=== PATIENT | female | born 1975 | race Caucasian/White ===

== ENCOUNTER 2017-02-14 16:46 | Emergency (ER) | payer BC ==
[2017-02-14 17:11] VITALS: BP 134/107
[2017-02-14] MEDS ORDERED: LORazepam 2 MG/ML MDV IM ONE (17:31)
--- NOTE | 2017-02-14 17:37 | EDM.PDOC ---
ED HPI GENERAL MEDICAL PROBLEM - General Chief Complaint: Behavioral/Psych Stated Complaint: SHAKING Time Seen by Provider: 02/14/17 17:18 Source of Information: Reports: Patient History Limitations: Reports: No Limitations - History of Present Illness INITIAL COMMENTS - FREE TEXT/NARRATIVE: The patient is a 41-year-old female with a long history of anxiety and PTSD presents to ED complaining of an anxiety attack with jerking. Patient states while at work has been quite stressful. States she has been having a hard time coping with the changes. This is only exacerbating her anxiety condition. States this past week they maxed out all her anxiety medications with little improvement. States this is a common occurrence for her with stressful situations. States she is possibly going to look for another job and get away from the drama. She does not completely understand what triggers her anxiety but notes none of her medications are working at this time. She does have some mild tingling to her fingers with increased respirations. Denies fever, chills , chest pain, shortness, coughing, dysuria, or any additional complaints. Patient has a service dog present. Current medications include: alprazolam 1 mg TID as needed, Ambien 10 mg tablet one tablet at bedtime, amphetamine-dextro amphetamines extended release 20 mg oral capsule one capsule daily, bupropion HCl extended release 50 mg once daily , cyclobenzaprine HCL 10 mg one tablet by mouth every 8 hours as needed for muscle spasms, estradiol 1 mg daily. Gabapentin 300 mg, 4 capsules 4 times daily , levothyroxine 75 mcg one tablet every day. Provera 1-2 puffs every 4-6 hours. sertraline 100 mg tablet, 3.5 tablets daily. - Related Data Allergies Allergy/AdvReac Type Severity Reaction Status Date / Time amoxicillin [From Augmentin] AdvReac Nausea Verified 10/02/16 16:07 clavulanic acid AdvReac Nausea Verified 10/02/16 16:07 [From Augmentin] fentanyl AdvReac Nausea Verified 10/02/16 16:07 Home Meds: Home Meds Estradiol 1 mg PO DAILY 07/08/16 [History] Zolpidem Tartrate 10 mg PO BEDTIME 07/08/16 [History] Sertraline HCl [Zoloft] 150 mg PO DAILY 09/29/16 [History] Levothyroxine 175 mcg PO DAILY 10/02/16 [History] Cyclobenzaprine [Flexeril] 10 mg PO TID PRN #40 tablet 10/03/16 [Rx] ALPRAZolam [Alprazolam] 1 mg PO DAILY 02/14/17 [History] Gabapentin [Neurontin] 1,200 mg PO QID 02/14/17 [History] Indomethacin 75 mg PO DAILY 02/14/17 [History] buPROPion HCl [Zyban] 150 mg PO DAILY 02/14/17 [History] Past Medical History HEENT History: Reports: None, Impaired Vision, Other (See Below) Other HEENT History: oral candidiasis Cardiovascular History: Reports: Other (See Below) Other Cardiovascular History: bradycardia Respiratory History: Reports: None Gastrointestinal History: Reports: Chronic Diarrhea, GERD, Other (See Below) Other Gastrointestinal History: gastric bypass, diverticulitis, dehydration Genitourinary History: Reports: Other (See Below) Other Genitourinary History: dysuria 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 Suicide attempt in 2011 Endocrine/Metabolic History: Reports: Hypothyroidism, Vitamin D Deficiency Hematologic History: Reports: Blood Transfusion(s), Other (See Below) Other Hematologic History: pharheme transfusions Immunologic History: Reports: None Oncologic (Cancer) History: Reports: Thyroid Dermatologic History: Reports: None - Past Surgical History Head Surgeries/Procedures: Reports: None Respiratory Surgical History: Reports: None GI Surgical History: Reports: Other (See Below) Neurological Surgical History: Reports: None Musculoskeletal Surgical History: Reports: Arthroscopic Procedure, Shoulder Surgery Oncologic Surgical History: Reports: None Dermatological Surgical History: Reports: None Social & Family History - Family History Psychiatric: Reports: Anxiety, Depression, Suicide Attempt, Other (See Below) Other Psychiatric Family History: Addiction - Tobacco Use Smoking Status *Q: Never Smoker Second Hand Smoke Exposure: No - Caffeine Use Caffeine Use: Reports: Coffee, Energy Drinks - Recreational Drug Use Recreational Drug Use: No Drug Use in Last 12 Months: No ED ROS GENERAL - Review of Systems Review Of Systems: See Below Constitutional: Reports: Decreased Appetite. Denies: Fever, Chills, Malaise, Weakness HEENT: Reports: No Symptoms Respiratory: Denies: Shortness of Breath, Cough, Sputum Cardiovascular: Reports: Blood Pressure Problem. Denies: Chest Pain, Dyspnea on Exertion, Edema, Lightheadedness, Palpitations, PND, Syncope GI/Abdominal: Denies: Abdominal Pain, Constipation, Diarrhea, Nausea, Vomiting Neurological: Reports: Numbness (to the tips of her fingers bilaterally), Paresthesia. Denies: Dizziness, Headache Psychiatric: Reports: Anxiety, Depression. Denies: Agitation, Confusion, Hallucinations, Homicidal Ideation, Suicidal Ideation ED EXAM, BEHAVIORAL HEALTH - Physical Exam Exam: See Below Exam Limited By: No Limitations General Appearance: Alert, WD/WN, Anxious Eye Exam: Bilateral Eye: EOMI, PERRL Ears: Hearing Grossly Normal Nose: Normal Inspection Throat/Mouth: Normal Inspection, Normal Oropharynx, Normal Voice, No Airway Compromise Head: Atraumatic, Normocephalic Neck: Normal Inspection, Supple Respiratory/Chest: No Respiratory Distress, Lungs Clear, Normal Breath Sounds Cardiovascular: Normal Peripheral Pulses, Regular Rate, Rhythm, No Murmur GI/Abdominal: Normal Bowel Sounds, Soft, Non-Tender Back Exam: Normal Inspection Extremities: Normal Inspection, Non-Tender, No Pedal Edema Neurological: Alert, Normal Mood/Affect, CN II-XII Intact, Normal Cognition, No Motor/Sensory Deficits, Oriented x 3 Psychiatric: Alert, Normal Cognition, Oriented, Restless. No: Non-Communicative , Poor Eye Contact, Homicidal Thoughts, Suicidal Plan Skin Exam: Warm, Dry, Intact, Normal color COURSE, BEHAVIORAL HEALTH COMP - Course Vital Signs: Last Vital Signs Temp 98.0 F 02/14/17 17:10 Pulse 74 02/14/17 17:10 Resp 20 02/14/17 17:10 BP 134/107 H 02/14/17 17:10 Pulse Ox 99 02/14/17 17:10 Orders, Labs, Meds: Laboratory Tests 02/14/17 Range/Units 17:52 Sodium 145 (136-145) mEq/L Potassium 4.0 (3.5-5.1) mEq/L Chloride 107 (98-107) mEq/L Carbon Dioxide 28 (21-32) mEq/L Anion Gap 14.0 (5-15) BUN 13 (7-18) mg/dL Creatinine 1.1 H (0.55-1.02) mg/dL Est Cr Clr Drug Dosing 69.26 mL/min Estimated GFR (MDRD) 55 (>60) mL/min BUN/Creatinine Ratio 11.8 L (14-18) Glucose 92 (74-106) mg/dL Calcium 9.0 (8.5-10.1) mg/dL Medications Discontinued Medications Generic Name Dose Route Start Last Admin Trade Name Aixa PRN Reason Stop Dose Admin Diazepam 5 mg 02/14/17 19:22 02/14/17 19:37 Valium. PO 02/14/17 19:23 5 mg ONETIME ONE Administration Lorazepam 1 mg 02/14/17 17:31 02/14/17 17:45 Ativan IM 02/14/17 17:32 1 mg ONETIME ONE Administration Re-Assessment/Re-Exam: Patient has been more anxious over the past week with increased stress at work. Patient states she had a panic attack the end of the day and developed a twitching sensation. States the twitch in his abnormal for her but notes all her medications have been increased recently. She does have a history of low potassium as well. Will obtain a BMP. Ordered Ativan 1 mg IM. Labs reviewed: Na 145, K 4.0, Cr 1.1. 1917 Reassessment, patient continuing to have tremors although they have decreased. Patient brought to my attention at that time she has not taken any of her medications since last weekend up until today. Question if the tremors aren't associated with restarting the high doses of gabapentin. Also suspect exacerbation anxiety is also related to not take any of her medications. Patient did not have a good reason why she stopped taking them. Ordered Valium 5 mg PO. No IV started. 2014 reassessment, the patient stopped shaking and is resting comfortably. She was awoken and has no complaints at this time. She is ready to go home. Had a long discussion on all the medications she's currently taking and that abrupt stopping and starting is not appropriate. We'll have her slowly increase her gabapentin dose over the next week. Discharge instructions as documented. Departure - Departure Time of Disposition: 20:33 Disposition: Home, Self-Care 01 Condition: good Clinical Impression: Depressive disorder, Panic disorder, Anxiety - Discharge Information Instructions: Panic Attacks, [id number], Dysphoria Referrals: Paula Pham PA [Primary Care Provider] - America Ram NP [Nurse Practitioner] - Forms: ED Department Discharge Additional Instructions: No driving this evening since receiving any sedative medication while in the ED. Suggest slowly increasing your gabapentin dose as instructed, 600mg qid for 3 days, 800mg qid for 3 days, 1000mg qid for 3 days, and back to original dose thereafter. Followup with PCP and Evangelina Ram the first part of next week to discuss further about medication regimen. This may require additional modification. Refrain from alcohol use. Return to the E.D. if you develop any new or worsening symptoms.
[2017-02-14] MEDS ORDERED: Diazepam 5 MG Tab PO ONE (19:22)
== END 2017-02-14 21:28 | disposition home or self-care (01) ==
LOC: JD.ED 16:46
DX: F32.9 Major depressive disorder, single episode, unspecified (principal); F41.0 Panic disorder [episodic paroxysmal anxiety]; F41.9 Anxiety disorder, unspecified; E03.9 Hypothyroidism, unspecified; K21.9 Gastro-esophageal reflux disease without esophagitis; F90.9 Attention-deficit hyperactivity disorder, unspecified type; Z98.890 Other specified postprocedural states; Z79.899 Other long term (current) drug therapy; Z88.1 Allergy status to other antibiotic agents; Z88.8 Allergy status to other drugs, medicaments and biological substances
CPT/HCPCS: 36415; 80048; 96372; 99284; A9270; J2060

== ENCOUNTER 2017-03-06 09:17 | Day surgery (SDC) | payer BC ==
[~2017-03-06 09:17] MED LIST: Lactated Ringers 1,000 ML IV SCH; Lidocaine 1% 2 ML ONE; Lidocaine 1%/Sod Bicarbonate in NS 8.4% 1 ML Syringe PRN; Midazolam 1 MG/ML 2 ML SDV ONE; Propofol 200 MG/20 ML SDV ONE; Rocuronium 50 MG/5 ML Vial ONE; Sodium Chloride 0.9% 10 ML Syringe FLUSH PRN; fentaNYL 100 MCG/2 ML SDV ONE; fentaNYL 250 MCG/5 ML SDV ONE
[2017-03-06] MEDS ORDERED: Ondansetron 4 MG/2 ML SDV ONE (09:19)
[2017-03-06] MEDS ORDERED: Ropivacaine 0.5% 5 MG/ML 30 ML SDV ONE (09:36)
[2017-03-06] MEDS ORDERED: EPINEPHrine 1:1000 1 MG/ML SDV ONE (09:36)
--- NOTE | 2017-03-06 10:01 | PCM.PREANE ---
Preanesthetic Assessment - Anesthesia/Transfusion/Family Hx Anesthesia History: No Prior Anesthesia (nasuea and vomiting) Family History of Anesthesia Reaction: No Transfusion History: Prior Transfusion Without Reaction - Review of Systems General: Fatigue Pulmonary: No Symptoms Cardiovascular: No Symptoms Gastrointestinal: No symptoms Neurological: Numbness (finger tips) Other: Reports: Thyroid Problems, Anxiety - Physical Assessment NPO Status Date: 03/05/17 NPO Status Time: 23:45 Pulse: 66 O2 Sat by Pulse Oximetry: 100 Respiratory Rate: 16 Blood Pressure: 124/73 Temperature: 36.1 C Vital Signs: Last Vital Signs Temp 36.5 C 03/06/17 09:35 Pulse 66 03/06/17 09:35 Resp 16 03/06/17 09:35 BP 124/73 03/06/17 09:35 Pulse Ox 100 03/06/17 09:35 Height: 1.63 m Weight: 85.729 kg ASA Class: 2 Mental Status: Alert & Oriented x3 Airway Class: Mallampati = 1 Dentition: Reports: Normal Dentition Thyro-Mental Finger Breadths: 3 Mouth Opening Finger Breadths: 3 ROM/Head Extension: Full Lungs: Clear to auscultation, Normal respiratory effort Cardiovascular: Regular Rate, Regular Rhythm, No Murmurs - Lab Values: Laboratory Last Values MRSA (PCR) Negative 03/04/17 12:04 - Allergies Allergies/Adverse Reactions: Allergies Allergy/AdvReac Type Severity Reaction Status Date / Time amoxicillin [From Augmentin] AdvReac Nausea Verified 03/05/17 14:36 clavulanic acid AdvReac Nausea Verified 03/05/17 14:36 [From Augmentin] fentanyl AdvReac Nausea Verified 03/05/17 14:36 - Acknowledgements Anesthesia Type Planned: General Anesthesia, Regional Block (interscalene block for pos-op pain control) Pt an Appropriate Candidate for the Planned Anesthesia: Yes Alternatives and Risks of Anesthesia Discussed w Pt/Guardian: Yes Pt/Guardian Understands and Agrees with Anesthesia Plan: Yes PreAnesthesia Questionnaire HEENT History: Reports: None, Impaired Vision, Other (See Below) Other HEENT History: oral candidiasis Cardiovascular History: Reports: Other (See Below) Other Cardiovascular History: bradycardia Respiratory History: Reports: None, Other (See Below) Other Respiratory History: bronchitis Gastrointestinal History: Reports: Chronic Diarrhea, GERD, Other (See Below) Other Gastrointestinal History: gastric bypass, diverticulitis, dehydration Genitourinary History: Reports: Other (See Below) Other Genitourinary History: dysuria, bacterial vaginosis, pelvic pain 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 Suicide attempt in 2011 Endocrine/Metabolic History: Reports: Hypothyroidism, Vitamin D Deficiency Hematologic History: Reports: Blood Transfusion(s), Other (See Below) Other Hematologic History: pharheme transfusions Immunologic History: Reports: None Oncologic (Cancer) History: Reports: Thyroid Dermatologic History: Reports: None, Other (See Below) Other Dermatologic History: hidradenitis suprativa, rhytides - Past Surgical History Head Surgeries/Procedures: Reports: None HEENT Surgical History: Reports: None Cardiovascular Surgical History: Reports: None Respiratory Surgical History: Reports: None GI Surgical History: Reports: Bariatric Procedure, Other (See Below) Female Surgical History: Reports: Hysterectomy, Oophorectomy Endocrine Surgical History: Reports: Thyroidectomy Neurological Surgical History: Reports: None Musculoskeletal Surgical History: Reports: Arthroscopic Procedure, Shoulder Surgery Other Musculoskeletal Surgeries/Procedures:: R shoulder arthroscopy, hip arthroscopy, low back surgery Oncologic Surgical History: Reports: None Dermatological Surgical History: Reports: None - SUBSTANCE USE Smoking Status *Q: Never Smoker Second Hand Smoke Exposure: No Days Per Week of Alcohol Use: 1 Number of Drinks Per Day: 0 Total Drinks Per Week: 0 Recreational Drug Use History: No - HOME MEDS Home Medications: Home Meds Estradiol 1 mg PO DAILY 07/08/16 [History] Zolpidem Tartrate 10 mg PO BEDTIME 07/08/16 [History] Sertraline HCl [Zoloft] 300 mg PO DAILY 09/29/16 [History] Levothyroxine 175 mcg PO DAILY 10/02/16 [History] ALPRAZolam [Alprazolam] 1 mg PO DAILY 02/14/17 [History] Albuterol [Proair HFA] 1 - 2 puff INH Q4H PRN 03/05/17 [History] Dextroamphetamine/Amphetamine [Adderall 20 mg Tablet] 20 mg PO DAILY 03/05/17 [ History] buPROPion [Wellbutrin XL] 150 mg PO DAILY 03/05/17 [History] Cyclobenzaprine [Flexeril] 10 mg PO TID PRN #40 tablet 03/06/17 [Rx] Hydrocodone/Acetaminophen [[place] 5-325 Tablet] 1 - 2 each PO Q6H PRN #40 tablet 03/06/17 [Rx] - CURRENT (IN HOUSE) MEDS Current Meds: Current Medications Lactated Ringer's (Ringers, Lactated) 1,000 mls @ 125 mls/hr IV ASDIRECTED SONIA Stop: 03/06/17 23:00 Last Admin: 03/06/17 09:35 Dose: 125 mls/hr Lidocaine/Sodium Bicarbonate (Buffered Lidocaine 1% In Ns 8.4%) 0.25 ml .XX ONETIME PRN PRN Reason: Prior to IV Start Stop: 03/06/17 18:00 Last Admin: 03/06/17 09:34 Dose: 0.25 ml Sodium Chloride (Saline Flush) 10 ml FLUSH ASDIRECTED PRN PRN Reason: Keep Vein Open Stop: 03/06/17 18:00 Discontinued Medications Epinephrine HCl (Adrenalin 1:1000) Confirm Administered Dose 1 mg .ROUTE .STK- MED ONE Stop: 03/06/17 09:37 Fentanyl (Sublimaze) Confirm Administered Dose 100 mcg .ROUTE .STK-MED ONE Stop: 03/06/17 07:31 Fentanyl (Sublimaze) Confirm Administered Dose 250 mcg .ROUTE .STK-MED ONE Stop: 03/06/17 09:07 Lidocaine HCl (Xylocaine-Mpf 1%) Confirm Administered Dose 2 mls @ as directed .ROUTE .STK-MED ONE Stop: 03/06/17 07:31 Lidocaine HCl (Xylocaine-Mpf 1%) Confirm Administered Dose 2 mls @ as directed .ROUTE .STK-MED ONE Stop: 03/06/17 09:08 Midazolam HCl (Versed 1 Mg/Ml) Confirm Administered Dose 2 mg .ROUTE .STK-MED ONE Stop: 03/06/17 07:31 Midazolam HCl (Versed 1 Mg/Ml) Confirm Administered Dose 2 mg .ROUTE .STK-MED ONE Stop: 03/06/17 09:07 Ondansetron HCl (Zofran) Confirm Administered Dose 4 mg .ROUTE .STK-MED ONE Stop: 03/06/17 09:20 Propofol (Diprivan 20 Ml) Confirm Administered Dose 400 mg .ROUTE .STK-MED ONE Stop: 03/06/17 09:07 Propofol (Diprivan 20 Ml) Confirm Administered Dose 200 mg .ROUTE .STK-MED ONE Stop: 03/06/17 09:08 Rocuronium [place] (Zemuron) Confirm Administered Dose 50 mg .ROUTE .STK-MED ONE Stop: 03/06/17 09:08 Ropivacaine (Naropin 0.5%) Confirm Administered Dose 30 ml .ROUTE .STK-MED ONE Stop: 03/06/17 09:37
[2017-03-06] MEDS ORDERED: Bupivacaine 0.25% 30 ML SDV ONE (10:50)
[2017-03-06] MEDS ORDERED: EPINEPHrine 1:1000 1 MG/ML 30 ML MDV ONE (11:01)
--- NOTE | 2017-03-06 11:15 | PCM.SN ---
- Free Text/Narrative Note: Note: 03/06/2017 1112 119/98 57 100% 16 Surgeon and pt request post-op pain control for right shoulder surgery risk of block failure, facial numbness, site infection, and chronic pain discussed with pt and agreed to proceed. All standard monitors est. EKG, BP, Pulse Ox, 2ml O2 and 2ml versed, 2ml fentanyl pre-op dx. right shoulder pain post-op dx right shoulder arthroscopy pt for interscalene block placement all standard monitors est. pt ID time out performed IV sedation 2ml versed, 2ml fentanyl, 2L NC O2, sterile prep and drape of right neck and shoulder U/S placed with visualization of brachial plexus from clavicle to cricoid local skin infiltration 22ga. Stimplex A insulated needle visualized at brachial plexus nerve stimulator at .9 Adrianna Amps stop at .3 Adrianna Amps with good bicep twitch with 1ml NaCl and lose of twitch neg aspirations every 5ml of 0.5% ropivacaine and 1:200,000 epi total of 30ml injected all done with U/S guidance needle withdrawn no complications noted pt tolerated procedure well block settling in start procedure at 1020 end procedure at 1040 119/98 75 98% 16
[2017-03-06] MEDS ORDERED: Dexamethasone 4 MG/ML SDV ONE (11:19)
[2017-03-06] MEDS ORDERED: Meperidine PF 50 MG/ML Syringe IVPUSH PRN (12:24)
[2017-03-06] MEDS ORDERED: diphenhydrAMINE 50 MG/ML SDV IVPUSH PRN (12:24)
[2017-03-06] MEDS ORDERED: Ondansetron 4 MG/2 ML SDV IVPUSH PRN (12:24)
[2017-03-06] MEDS ORDERED: ceFAZolin 1 GM Vial ONE (12:45)
[2017-03-06] MEDS ORDERED: Neostigmine Methylsulfate 1 MG/ML 5 ML Syringe ONE (12:45)
--- NOTE | 2017-03-06 13:07 | PCM.POSTAN ---
POST ANESTHESIA ASSESSMENT - MENTAL STATUS Mental Status: alert, oriented - VITAL SIGNS Pulse Rate: 67 SaO2: 91 Resp Rate: 8 Blood Pressure: 122/88 Temperature: 36.3 C - RESPIRATORY Respiratory Status: respiratory rate WNL, airway patent, O2 saturation stable, supplemental oxygen - CARDIOVASCULAR CV Status: pulse rate WNL, blood pressure stable - GASTROINTESTINAL GI Status: no symptoms - PAIN Pain Score: 0 - POST OP HYDRATION Hydration Status: adequate & stable
[2017-03-06] MEDS ORDERED: fentaNYL 100 MCG/2 ML SDV IVPUSH PRN (13:25)
[2017-03-06 15:41] VITALS: BP 113/70
--- NOTE | 2017-03-10 21:40 | PCM.OPNOTE ---
- General Post-Op/Procedure Note Date of Surgery/Procedure: 03/06/17 Operative Procedure(s): right shoulder video arthroscopy with biceps tenodesis Pre Op Diagnosis: right shoulder SLAP tear with biceps tendinopathy Post-Op Diagnosis: Same Anesthesia Technique: General ET tube, Regional block Primary Surgeon: Yoan Alexander Anesthesia Provider: Raudel Guy Twister Operator: Bhavana Saavedra EBL in mLs: 5 Complications: None Condition: Good
--- NOTE | 2017-03-10 22:31 | OR ---
DATE OF OPERATION: 03/06/2017 SURGEON: Yoan Alexander MD OPERATION PERFORMED: Right shoulder video arthroscopy with biceps tenodesis. PREOPERATIVE DIAGNOSIS: Right shoulder SLAP tear biceps tendinopathy. 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 ANESTHESIA: General endotracheal intubation with regional interscalene block. ANESTHESIA PROVIDER: Raudel Guy. ACCOUNT EXECUTIVE SALES REPRESENTATIVE: Bhavana Saavedra PA-C. ESTIMATED BLOOD LOSS: 5 mL. COMPLICATIONS: None. CONDITION: Stable. DESCRIPTION OF PROCEDURE: The patient was identified in the preop holding area, proper site was marked and identified by the surgeon. The patient was taken back to the operating theater, where after adequate anesthesia, the patient was placed in the lazy left lateral decubitus position. All bony prominences were well padded and wedge was placed posteriorly. At this time, the right shoulder was then sterilely prepped and draped in the usual sterile fashion. OR time-out was performed. The patient received 2 g IV Ancef and 12 pounds of traction was applied to the right upper extremity. At this time, standard posterior portal incision was made. The scope trocar was introduced in the glenohumeral joint. At this time, the patient was noted to have significant fraying and erythema noted around the biceps tendon with a SLAP tear both superiorly. The patient was also noted to have significant fraying of the anterior labrum and noted to have grade 2 chondromalacia of the superior portion of the glenoid as well as some of the humeral head. Subscapularis tendon was intact. Undersurface of the rotator cuff was intact. At this time, the anterior portal was created with the use of a spinal needle. A FiberWire was shuttled through the biceps tendon and then tendon was tenotomized for later tenodesis in the rotator interval. At this time, the superior and the anterior labrum were then brought back to a smooth border and the synovitis was cleaned out as well. At this time, attention was turned to the subacromial space. The patient had previous subacromial decompression which was found to be complete. A limited bursectomy was carried out and the limbs of the FiberWire were identified for tenodesis in the rotator interval. There was no rotator cuff tendon visualized. At this time, adequate saline was irrigated through the shoulder. Portals were closed with 3-0 nylon simple sutures. The patient was placed in a sling and was sent to the PACU in stable condition. AN /[id number]
== END 2017-03-06 15:50 | disposition home or self-care (01) ==
LOC: JD.SDS 09:17
PROVIDERS: ATTEND Orthopaedic Surgery
PROC: 0LS14ZZ Reposition Right Shoulder Tendon, Percutaneous Endoscopic Approach (ICD-10-PCS; principal; 2017-03-06)
DX: S43.431A Superior glenoid labrum lesion of right shoulder, initial encounter (principal); M94.211 Chondromalacia, right shoulder; M75.21 Bicipital tendinitis, right shoulder; M19.019 Primary osteoarthritis, unspecified shoulder; M19.90 Unspecified osteoarthritis, unspecified site; G89.29 Other chronic pain; M25.50 Pain in unspecified joint; F41.8 Other specified anxiety disorders; E89.0 Postprocedural hypothyroidism; E55.9 Vitamin D deficiency, unspecified; Z88.0 Allergy status to penicillin; Z88.5 Allergy status to narcotic agent; Z79.899 Other long term (current) drug therapy; Z98.84 Bariatric surgery status; Z90.710 Acquired absence of both cervix and uterus; Z90.721 Acquired absence of ovaries, unilateral; Z98.890 Other specified postprocedural states
CPT/HCPCS: 29828; 87641; J0171; J0690; J1100; J2250; J2405; J2710; J2795; J3010; J7120; 01630; 64415; J2704; J3490